=== PATIENT | female | born 1975 | race Caucasian/White ===

== ENCOUNTER → 2025-09-29 15:09 | Outpatient (CLI) | payer OTHER, SELFPAY ==
--- NOTE | 2025-09-29 15:13 | DI.MRI.S_ITS ---
PROCEDURE: MR LUMBAR SPINE WO CON INDICATIONS: Spondylosis TECHNIQUE: Noncontrast sagittal T1 spin echo and T2 fast echo, sagittal STIR, and T2 fast spin echo through the lumbar spine. In cases with scoliosis, additional coronal T2 fast spin echo may be performed. COMPARISON: None. FINDINGS: Image quality: Diagnostic Alignment and Curvature: No spondylolisthesis Bone Marrow: No acute fracture. Multilevel disc desiccation most significant at L4-L5 Spinal Cord: Unremarkable cauda equina nerve roots and conus Paraspinous Soft Tissues: No significant paraspinal abnormality. No abdominal aortic aneurysm where visualized. T12-L1: No stenosis L1-L2: No stenosis L2-L3: Mild diffuse disc bulge. Mild facet arthropathy. L3-L4: Mild diffuse disc bulge. Mild facet arthropathy. No stenosis L4-L5: Moderate facet arthropathy. [id number]-ac-vuzvwyol diffuse disc bulge. Mild central narrowing, with more focal involvement at the left subarticular recess. Mild left neural foraminal narrowing. L5-S1: Nndf-jx-aomwyeul facet arthropathy and mild diffuse disc bulge. IMPRESSION: Low-grade spondylosis, worst at L4-L5. Dictated by: Shekhar Ventura M.D. on 09/30/2025 at 9:16 Approved by: Shekhar Ventura M.D. on 09/30/2025 at 9:19
== END ==
PROVIDERS: Referring Provider Acupuncturist; Visit Provider Acupuncturist
DX: M47.816 Spondylosis without myelopathy or radiculopathy, lumbar region (principal); M47.817 Spondylosis without myelopathy or radiculopathy, lumbosacral region
CPT/HCPCS: 72148